=== PATIENT | male | born 1970 | race Caucasian/White ===

== ENCOUNTER 2019-03-30 09:29 | Emergency (ER) | payer MEDICAID ==
[~2019-03-30] VITALS: Ht 172.7 cm; Wt 82.0 kg
[2019-03-30 09:46] VITALS: BP 115/81
[2019-03-30] MEDS ORDERED: DIPH25CA83 PO (09:50)
[2019-03-30] MEDS ORDERED: FAMOTIDINE 20MG TABLET PO ONE (10:30)
[2019-03-30] MEDS ORDERED: PREDNISONE 20MG TABLET PO ONE (10:30)
== END 2019-03-30 11:25 | disposition home or self-care (01) ==
LOC: ER 10:47
DX: L50.0 Allergic urticaria (principal)
CPT/HCPCS: 99283; J7512

== ENCOUNTER 2023-08-20 22:33 | Emergency (ER) | payer MEDICAID, OTHER ==
[~2023-08-20] VITALS: Ht 172.7 cm; Wt 83.2 kg
[~2023-08-20 22:33] MED LIST: DIPH25CA83 PO
[2023-08-20 22:42] VITALS: BP 153/88; PULSE 85; RESP 16; TEMP 98.7; O2SAT 98
[2023-08-20] MEDS ORDERED: DEXAMETHASONE 2MG TABLET PO ONE (23:15)
== END 2023-08-20 23:58 | disposition home or self-care (01) ==
LOC: ER 22:33
DX: R21 Rash and other nonspecific skin eruption (principal)
CPT/HCPCS: 99283; J8540

== ENCOUNTER 2023-08-25 18:02 | Emergency (ER) | payer OTHER ==
[~2023-08-25] VITALS: Ht 172.7 cm; Wt 82.0 kg
[2023-08-25 18:24] VITALS: BP 145/89; PULSE 72; RESP 16; TEMP 98.6; O2SAT 99
[2023-08-25] MEDS ORDERED: CLOT15CR5 TP (18:34)
[2023-08-25] MEDS ORDERED: CETI10TA6 MT (18:34)
== END 2023-08-25 18:59 | disposition home or self-care (01) ==
LOC: ER 18:02
DX: L29.9 Pruritus, unspecified (principal)
CPT/HCPCS: 99282